=== PATIENT | male | born 2000 | race African-American/Black ===

== ENCOUNTER 2020-05-05 03:59 | Emergency (ER) | payer SELFPAY ==
[2020-05-05] MEDS ORDERED: Acetaminophen 500 MG TAB ONE (04:06)
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
== END 2020-05-05 05:55 | disposition home or self-care (01) ==
LOC: ERS 03:59
DX: S80.01XA Contusion of right knee, initial encounter (principal); V47.5XXA Car driver injured in collision with fixed or stationary object in traffic accident, initial encounter